=== PATIENT | female | born 1965 | race Caucasian/White ===

== ENCOUNTER → 2021-12-30 | Day surgery (SDC) | payer OTHER ==
[~2021-12-30] VITALS: Ht 170.2 cm; Wt 97.1 kg
[~2021-12-30] MED LIST: ALLERGY SHOT SC; BREZTRI AEROS10.7 GM; CERTAGEN1 EACH PO; CHANTIX0.5 MG PO; FEOSOL325 MG PO; LASIX20 MG PO; LOPRESSOR25 MG PO; METFORMIN HCL500 MG PO; NEXIUM40 MG PO; PRILOSEC20 MG PO; PROAIR HFA8.5 GM INH; PROZAC10 MG PO; PROZAC20 MG PO; STRATTERA10 MG PO; SYNTHROID100 MCG PO; VITAMIN B122500 MCG PO; VITAMIN C1000 MG PO; VITAMIN D210 MCG PO; VITAMIN D310 MCG PO
== END | disposition home or self-care (01) ==
LOC: FAS 11-18 08:15
DX: Z12.11 Encounter for screening for malignant neoplasm of colon (principal); K29.50 Unspecified chronic gastritis without bleeding; K57.30 Diverticulosis of large intestine without perforation or abscess without bleeding; K64.8 Other hemorrhoids; K21.9 Gastro-esophageal reflux disease without esophagitis; E03.9 Hypothyroidism, unspecified; G47.33 Obstructive sleep apnea (adult) (pediatric); I10 Essential (primary) hypertension; J44.9 Chronic obstructive pulmonary disease, unspecified; Z98.84 Bariatric surgery status; Z87.891 Personal history of nicotine dependence; Z80.0 Family history of malignant neoplasm of digestive organs; Z88.1 Allergy status to other antibiotic agents; Z79.84 Long term (current) use of oral hypoglycemic drugs; Z79.899 Other long term (current) drug therapy
CPT/HCPCS: 43239; G0105; J1610; J2250; J2704; J7120